=== PATIENT | female | born 1950 | race Caucasian/White ===

== ENCOUNTER 2019-10-28 17:28 | Inpatient (IN) | payer MEDICARE, OTHER ==
[~2019-10-28] VITALS: Ht 152.4 cm; Wt 36.7 kg
--- NOTE | 2019-10-28 17:36 | NUR ---
MK FROM [facility]. PER REPORT, "Depressed/unhappy, dont like Con home, I said I didn't want to live anymore but did not really mean it" "I just said some stupid things, I never meant to hurt myself". to ER bed 11, hooked to monitor, changed to hosp gown, warm blanket provided, patient aao X 4, breathing even and unlabored. Sitter at bedside for safety. Dr Mtz at bedside
[2019-10-28 17:53] LABS: BASOPHILS % (AUTO) 0.5 % (0.0-2.0); EOSINOPHILS % (AUTO) 0.4 % (0.0-6.0); HEMATOCRIT 32 % (33-45); HEMOGLOBIN 10.6 g/dL (11.5-14.8); LYMPHOCYTES # (AUTO) 1.2 /CMM (0.8-4.8); LYMPHOCYTES % (AUTO) 14.6 % (20.0-44.0); MEAN CORPUSCULAR HGB CONC 33 g/dl (31.0-36.0); MEAN CORPUSCULAR VOLUME 97 fL (82-100); MONOCYTES # (AUTO) 0.5 /CMM (0.1-1.30); MONOCYTES % (AUTO) 6.6 % (2.0-12.0); NEUTROPHILS # (AUTO) 6.2 /CMM (1.8-8.9); NEUTROPHILS % (AUTO) 77.9 % (43.0-81.0); PLATELET COUNT (AUTO) 380 /CMM (150-450); RED BLOOD CELL COUNT(AUTO) 3.36 MIL/uL (4.0-5.2)
[2019-10-28 17:59] LABS: CALCIUM, SERUM 9.4 mg/dL (8.5-10.1); CARBON DIOXIDE 25 mmol/L (21-32); CHLORIDE 103 mmol/L (98-107); CREATININE 0.9 mg/dL (0.6-1.3); GLUCOSE 133 mg/dL (74-106); POTASSIUM 3.9 mmol/L (3.5-5.1); SODIUM SERUM 137 mmol/L (136-145); UREA NITROGEN, BLOOD 31 mg/dL (7-18)
[2019-10-28 18:09] LABS: SALICYLATE 0.5 mg/dL (2.8-20.0)
--- NOTE | 2019-10-28 18:09 | NUR ---
URINE SAMPLE COLLECTED VIA STRAIGHT CATHETER, SAMPLE SENT TO LAB
[2019-10-28 18:10] LABS: ALCOHOL, BLOOD < 3 mg/dL (0-0)
[2019-10-28] MEDS ORDERED: CITA10TA9 PO (18:12)
[2019-10-28] MEDS ORDERED: NORT25CA PO (18:12)
[2019-10-28] MEDS ORDERED: SUMA50TA PO (18:12)
[2019-10-28] MEDS ORDERED: ACET-2605 PO (18:12)
[2019-10-28] MEDS ORDERED: MAGN400T26 PO (18:12)
[2019-10-28] MEDS ORDERED: METH1TAB30 PO (18:12)
[2019-10-28] MEDS ORDERED: BENA20TA9 PO (18:12)
[2019-10-28] MEDS ORDERED: VALA500T40 PO (18:12)
[2019-10-28] MEDS ORDERED: MAGN400O6 PO (18:12)
[2019-10-28] MEDS ORDERED: BISA10SU11 RC (18:12)
[2019-10-28] MEDS ORDERED: TRAM50TA2 PO (18:12)
[2019-10-28] MEDS ORDERED: SUCR1TAB PO (18:12)
[2019-10-28] MEDS ORDERED: ACET-868 PO (18:12)
[2019-10-28] MEDS ORDERED: AMLO10TA4 PO (18:12)
[2019-10-28] MEDS ORDERED: CYCL30DR EACHEYE (18:12)
[2019-10-28] MEDS ORDERED: PANT40TA2 PO (18:12)
[2019-10-28] MEDS ORDERED: MULT-24 PO (18:12)
[2019-10-28] MEDS ORDERED: NA P133E RC (18:12)
[2019-10-28] MEDS ORDERED: ALEN70TA6 PO (18:12)
--- NOTE | 2019-10-28 18:28 | NUR ---
NITHIN RN CALLED. ETA 1 HOUR. PRIMARY NURSE AWARE.
[2019-10-28 18:54] LABS: APPEARANCE,URINE Cloudy (CLEAR); BILIRUBIN,URINE Negative (NEGATIVE); BLOOD, URINE Moderate Ery/uL (NEGATIVE); COLOR,URINE Yellow (YELLOW); KETONES,URINE Negative (NEGATIVE); LEUKOCYTE ESTERASE ,URINE Moderate (NEGATIVE); NITRITE, URINE Negative (NEGATIVE); PROTEIN,URINE 100 mg/dl (NEGATIVE); UGLUCOSE Negative (NEGATIVE); UROBILINOGEN,URINE 0.2 EU/dL (0.2)
[2019-10-28 19:05] LABS: THYROID STIMULATING HORMONE 0.924 uIU/mL (0.358-3.74)
--- NOTE | 2019-10-28 19:14 | NUR ---
JADE WELLRE FROM CRISIS TEAM AT BEDSIDE
[2019-10-28 19:20] LABS: BACTERIA,URINE Many /HPF (None Seen); RBC,URINE 21-50 /HPF (0-2); SQUAMOUS EPITHELIAL CELL,UR Moderate /HPF (None Seen); WBC,URINE TOO NUMEROUS TO COUN /HPF (0-3)
--- NOTE | 2019-10-28 19:24 | NUR ---
COVID SAMPLE SWAB COLLECTED AND SENT TO LAB
[2019-10-28] MEDS ORDERED: HYDROCODONE/APAP 7.5/325MG 1 EACH TABLET PO ONE (20:00)
[2019-10-28] MEDS ORDERED: NITROFURANTOIN/NITROFURAN MAC 100 MG CAPSULE PO ONE (20:00)
[2019-10-28] MEDS ORDERED: HYDROCODONE/APAP 5/325MG TABLET ONE (20:04)
[2019-10-28] MEDS ORDERED: NITROFURANTOIN/NITROFURAN MAC 100 MG CAPSULE ONE (20:04)
[2019-10-28] MEDS ORDERED: HYDROCODONE/APAP 5/325MG TABLET PO ONE (20:30)
--- NOTE | 2019-10-28 20:31 | NUR ---
TIMBO (PT'S BEST FRIEND)
[2019-10-28] MEDS ORDERED: ACETAMINOPHEN 325 MG TABLET PO PRN ×3 (22:00→23:30)
[2019-10-28] MEDS ORDERED: ALENDRONATE 70 MG TABLET PO SCH (22:00)
[2019-10-28] MEDS ORDERED: BISACODYL SUPP (10 MG) 10 MG/SUPP.RECT SUPP.RECT RC PRN (22:00)
[2019-10-28] MEDS ORDERED: NA PHOS,M-B/NA PHOS,DI-BA 1 EA ENEMA RC PRN (22:00)
[2019-10-28] MEDS ORDERED: MAGNESIUM HYDROXIDE 30 ML UDC PO PRN ×2 (22:00→23:30)
[2019-10-28] MEDS ORDERED: MISCELLANEOUS MED 1 EA EA PO PRN (22:00)
[2019-10-28 22:30] VITALS: BP 113/50
--- NOTE | 2019-10-28 22:30 | NUR ---
RN OPENING NOTE PT RECEIVED FROM ER. PT ARRIVED ON THE UNIT AT 2220 VIA STRETCHER WITH 1 NURSE ESCORT. PATIENT ADMITTED ON A 5150 HOLD FOR DTO. 5150 HOLD WAS RECEIVED.UPON FACE TO FACE ASSESSMENT PT IS NOTED GROOMED AND COOPERATIVE. PT CURRENTLY IS LYING IN THE BED, AWAKE, ORIENTED X4. PATIENT IS DISPLAYING NO S/S OF APPARENT DISTRESS. PT IS ON ROOM AIR HAVING UNLABORED BREATHING AND SATING 98%.PATIENT DENIES SUICIDE IDEATION AND HOMICIDAL IDEATION AT THIS TIME. PATIENT IS UNDER PSYCHIATRIC CARE OF DR ZIMMER AND THE MEDICAL CARE OF DIOR (ANN MARIE). PT BELONGINGS WERE INVENTORIED AND CHECKED FOR CONTRABAND. SAFETY MEASURES IN PLACE BED AT LOWEST POSITION, LOCKED, SIDE RAILS UP X2, CALL LIGHT IN REACH.I WILL CONTINUE TO MONITOR THIS PATIENT TO MAINTAIN SAFETY. Addendum: 10/29/19 at 0643 by JUAN JOSE FREY RN RN NOTE PT IS DTS NOT DTO.
[2019-10-28] MEDS ORDERED: BLOOD SUGAR DIAGNOSTIC 1 EACH STRIP IN ONE (23:30)
[2019-10-28] MEDS ORDERED: MAG HYDROX/AL HYDROX/SIMETH 30 ML UDC PO PRN (23:30)
[2019-10-29] VITALS: BP 106/59
[2019-10-29] MEDS: TRAMADOL HCL 50 MG TABLET PO PRN ×3 (00:31→18:19)
[2019-10-29] MEDS: TEMAZEPAM 7.5 MG CAPSULE PO PRN ×2 (00:32→21:52)
[2019-10-29] MEDS: SUCRALFATE 1 G TABLET PO SCH ×5 (00:32→21:51)
--- NOTE | 2019-10-29 00:45 | NUR ---
RN NOTE CARAFATE WAS NOT AVAILABLE SO IT WAS NOT ADMINISTERED.
[2019-10-29 04:00] VITALS: BP 118/63
--- NOTE | 2019-10-29 07:15 | NUR ---
RN OPENING NOTE: Received patient in bed. Awake, alert and oriented x4. Isolation precaution to R/O COVID in place. On room air and tolerating well, saturation noted at 95%. No SOB and not in respiratory distress. Currently admitted on a 5150 hold for DTS, patient denies any suicidal ideation and homicidal ideation at this time. Patient for psych consult and still to be seen and evaluated. Pain reported at the back and will continue to manage with prescribed pain medications. Call light in reach, bed locked, low and at semi-tatum's position. Side rails up x3 and padded. Will continue to monitor.
--- NOTE | 2019-10-29 07:23 | NUR ---
RN CLOSING NOTE PT REMAINED STABLE DURING MY SHIFT. REPORT GIVEN TO INCOMING SHIFT FOR SOPHIE.
[2019-10-29 08:00] VITALS: BP 98/63
[2019-10-29] MEDS ORDERED: ACETAMINOPHEN ES 500 MG TABLET PO PRN (08:00)
[2019-10-29] MEDS: ENSURE ENLIVE CHOC 237 ML CAN PO SCH ×2 (08:00→18:14)
[2019-10-29] MEDS: PANTOPRAZOLE 40 MG TABLET.DR PO SCH (08:27)
[2019-10-29] MEDS: SUMATRIPTAN SUCCINATE 25 MG TABLET PO SCH ×2 (08:28→18:14)
[2019-10-29] MEDS: MAGNESIUM OXIDE 400 MG TABLET PO SCH ×2 (08:28→18:12)
[2019-10-29] MEDS: MULTIVITAMINS,THERAGRAN 1 UDTAB TABLET PO SCH (08:28)
[2019-10-29] MEDS: VALACYCLOVIR HCL 500 MG TABLET PO SCH (08:28)
[2019-10-29] MEDS: BENAZEPRIL HCL 20 MG TABLET PO SCH ×2 (09:00→18:14)
[2019-10-29] MEDS: AMLODIPINE BESYLATE 10 MG TABLET PO SCH (09:00)
[2019-10-29] MEDS ORDERED: METHENAMINE MANDELATE 1 GM TABLET PO SCH (09:00)
[2019-10-29 16:00] VITALS: BP 110/61
--- NOTE | 2019-10-29 19:30 | NUR ---
RN CLOSING NOTE: Patient remains in bed. Awake, alert and oriented x4. Isolation precaution to R/O COVID in place. On room air and tolerating well, saturation noted at 95%. No SOB and not in respiratory distress. Currently admitted on a 5150 hold for DTS, patient denies any suicidal ideation and homicidal ideation at this time. Patient for psych consult and still to be seen and evaluated. Pain reported at the back managed with prescribed pain medications. Call light in reach, bed locked, low and at semi-tatum's position. Side rails up x3 and padded. Seen by Dr. Castro on shift. Endorsed to oncoming shift for SOPHIE.
--- NOTE | 2019-10-29 20:00 | NUR ---
JAG RN OPENING NOTES RECEIVED PATIENT IN BED, AWAKE, CONSCIOUS, COOPERATIVE, A/0 X4, HOB ELEVATED, BREATHING AT ROOM AIR, NO SIGNS OF RESPIRATORY DISTRESS, NO COMPLAINTS OF PAIN, PATIENT IS ON 5150 HOLD, WILL END ON 10/31/19, NO IV ACCESS, SIDE RAILS UP.
--- NOTE | 2019-10-29 23:45 | NUR ---
JAG RN CLOSING NOTES ENDORSED PATIENT TO GPS RN ABENA, A/O X 4, BREATHING AT ROOM AIR, UNLABORED BREATHING, NO SIGNS OF RESPIRATORY DISTRESS, NO IV ACCESS, GPS NURSE WILL DO SOPHIE.
[2019-10-29 23:50] VITALS: BP 104/60
--- NOTE | 2019-10-29 23:50 | NUR ---
GPS RN NOTES: ADMISSION ADMITTED 69 Y/O FEMALE FROM [facility] UNIT TO GPS ON A 5150. PER HOLD PT CAME FROM [facility]. SHE WAS BROUGHT IN DUE TO INCREASED DEPRESSION. PT VERBALIZED TO STAFF SHE WAS DEPRESSED AND WANTS TO AND TO KILL HERSELF BY OVERDOSE ON PILLS. PER HOLD PT VERBALIZE SHE DOESN'T WANT TO LIVE ANYMORE. UPON FACE TO FACE ASSESSMENT PT IS UNCOOPERATIVE AT TIMES, FLAT AFFECT, IN DENIAL, DEPRESSED, RESERVE, AND GUARDED. RECEIVED REPORT FROM JAG NURSE ELIE. PT IS BED REST. PT IN LOW BED, X2 SIDE RAILS UP, SEMI RODRÍGUEZ POSITION, AND BED ALARM ON. PT STATES SHE WANTS TO BE ALONE AND REFUSES TO TAKE PICTURE OF HER SKIN DUE TO "NOT IN THE MOOD." NOTED SACRAL REDNESS AND DISCOLORATION ON BOTH ARMS. PICTURE ALREADY TAKEN ON THE October AND PUT INTO THE CHART. ORDERED WOUND CONSULT IN THE MORNING FOR FURTHER ASSESSMENT. ORDERED ZGUARD FOR SACRAL REDNESS. PLAN OF CARE, REPOSITION PT Q2 HOURS. PT JUAN CARLOS SI AND HI AT THIS TIME. ENVIRONMENTAL SAFETY CHECK Q15 MIN. ENCOURAGE TO VERBALIZE THOUGHTS AND FEELINGS TO STAFF. BELONGINGS CHECKED FOR CONTRABAND. NURSING ASSESSMENT DONE. PICTURE IF PT FACE FOR IDENTIFICATION IS PLACE IN CHART. PTS RIGHT DISCUSS BY VENDING ROUTE DRIVER. VITALS TAKEN WITHIN NORMAL LEVELS. PT HAS DENTURES WITH HER. DENTURE CONTAINER AT BEDSIDE IF NEEDED. NO SOB. NO RESP DISTRESS. BREATHING EVEN AND UNLABORED. CALL CAN WITHIN REACH. CONTINUE TO MONITOR
[2019-10-30] MEDS: PANTOPRAZOLE 40 MG TABLET.DR PO SCH (07:30)
[2019-10-30] MEDS: SUCRALFATE 1 G TABLET PO SCH ×4 (07:30→21:08)
[2019-10-30 08:00] VITALS: BP 115/60
[2019-10-30 08:17] LABS: CALCIUM, SERUM 9.2 mg/dL (8.5-10.1); CREATININE 0.8 mg/dL (0.6-1.3); POTASSIUM 3.9 mmol/L (3.5-5.1)
[2019-10-30 08:19] LABS: BASOPHILS # (AUTO) 0.1 /CMM (0.0-0.2); BASOPHILS % (AUTO) 0.8 % (0.0-2.0); EOSINOPHILS % (AUTO) 0.3 % (0.0-6.0); HEMATOCRIT 32 % (33-45); HEMOGLOBIN 10.7 g/dL (11.5-14.8); LYMPHOCYTES # (AUTO) 1.2 /CMM (0.8-4.8); LYMPHOCYTES % (AUTO) 18.7 % (20.0-44.0); MEAN CORPUSCULAR HGB CONC 33 g/dl (31.0-36.0); MEAN CORPUSCULAR VOLUME 96 fL (82-100); MONOCYTES # (AUTO) 0.4 /CMM (0.1-1.30); MONOCYTES % (AUTO) 6.8 % (2.0-12.0); NEUTROPHILS # (AUTO) 4.8 /CMM (1.8-8.9); NEUTROPHILS % (AUTO) 73.4 % (43.0-81.0); PLATELET COUNT (AUTO) 341 /CMM (150-450); RED BLOOD CELL COUNT(AUTO) 3.38 MIL/uL (4.0-5.2); WHITE BLOOD COUNT (AUTO) 6.5 K/uL (4.3-11.0)
[2019-10-30] MEDS: SUMATRIPTAN SUCCINATE 25 MG TABLET PO SCH ×2 (08:35→17:00)
[2019-10-30] MEDS: MAGNESIUM OXIDE 400 MG TABLET PO SCH ×2 (08:35→17:00)
[2019-10-30] MEDS: BENAZEPRIL HCL 20 MG TABLET PO SCH ×2 (08:35→17:00)
[2019-10-30] MEDS: VALACYCLOVIR HCL 500 MG TABLET PO SCH (08:36)
[2019-10-30] MEDS: ENSURE ENLIVE CHOC 237 ML CAN PO SCH ×2 (08:36→17:47)
[2019-10-30] MEDS: AMLODIPINE BESYLATE 10 MG TABLET PO SCH (08:36)
[2019-10-30] MEDS: MULTIVITAMINS,THERAGRAN 1 UDTAB TABLET PO SCH (08:36)
[2019-10-30] MEDS: Z GUARD REMEDY 4 OZ OINT TP SCH (09:00)
--- NOTE | 2019-10-30 09:00 | NUR ---
GPS/RN PT REFUSED MEDS SCHEDULED FOR 0900. OFFERED X3
[2019-10-30] MEDS ORDERED: FIXODENT 1 EA TUBE MM PRN (11:30)
[2019-10-30 16:00] VITALS: BP 118/70
--- NOTE | 2019-10-30 17:48 | NUR ---
GPS/RN PT REFUSED MEDS SCHEDULED FOR 1700. OFFERED X3
[2019-10-30] MEDS: TRAMADOL HCL 50 MG TABLET PO PRN (19:52)
[2019-10-30 20:31] VITALS: BP 107/67
[2019-10-30] MEDS: TEMAZEPAM 7.5 MG CAPSULE PO PRN (21:08)
--- NOTE | 2019-10-30 22:47 | NUR ---
RN NOTE: PATIENT REFUSED SKIN REASSESSMENT AND PICTURE OF THE SKIN TO BE TAKEN.
[2019-10-31] MEDS: SUCRALFATE 1 G TABLET PO SCH ×4 (07:30→21:33)
[2019-10-31] MEDS: PANTOPRAZOLE 40 MG TABLET.DR PO SCH (07:30)
[2019-10-31 08:00] VITALS: BP 124/64
[2019-10-31] MEDS: AMLODIPINE BESYLATE 10 MG TABLET PO SCH (08:29)
[2019-10-31] MEDS: VALACYCLOVIR HCL 500 MG TABLET PO SCH (08:29)
[2019-10-31] MEDS: MULTIVITAMINS,THERAGRAN 1 UDTAB TABLET PO SCH (08:29)
[2019-10-31] MEDS: MAGNESIUM OXIDE 400 MG TABLET PO SCH ×2 (08:30→17:40)
[2019-10-31] MEDS: BENAZEPRIL HCL 20 MG TABLET PO SCH ×2 (08:30→17:00)
[2019-10-31] MEDS: SUMATRIPTAN SUCCINATE 25 MG TABLET PO SCH ×2 (08:31→17:35)
[2019-10-31] MEDS: ENSURE ENLIVE CHOC 237 ML CAN PO SCH ×2 (08:31→17:36)
[2019-10-31] MEDS: Z GUARD REMEDY 4 OZ OINT TP SCH (08:48)
--- NOTE | 2019-10-31 11:27 | NUR ---
Person to Notify Contact: TJ called the pts friend, Carmen ([phone]), and left a voicemail stating that the SW would like to discuss the pts treatment plan at her earliest convenience.
--- NOTE | 2019-10-31 11:34 | NUR ---
WOUND CARE CONSULT: PT PRESENTS WITH SACRAL SCARRING AND LOWER BUTTOCKS RASH, PRESENT ON ADMISSION. RECOMMENDATIONS MADE FOR SKIN PROTECTION. DISCUSSED WITH NURSING STAFF. PT NOTED TO BE EXTREMELY THIN AND BONY. DIETARY CONSULT IN PLACE. WILL SEE PRN. EARL IN AGREEMENT WITH PLAN OF CARE. Addendum: 10/31/19 at 1135 by RAKESH ROE WNDNU Amended: Links added.
--- NOTE | 2019-10-31 11:37 | NUR ---
Facility Contact: SW called [facility] ([phone]) and spoke to Shirin from the Admissions Department who stated that the pt can return to the facility once she is stable for discharge but will be requesting updates at that time.
--- NOTE | 2019-10-31 11:54 | NUR ---
Friend Contact: Pts friend, Carmen ([phone]), called the SW during her lunch break from work to discuss the pts treatment. She stated that the pt does not want to return to the facility that she was residing in and stated that she would want the SW to discharge the pt to an alternative SNF placement. SW states that she will discuss the pts discharge with the MD and determine if there is a facility that is more appropriate for her. SW stated that she will keep her updated.
[2019-10-31] MEDS: TRAMADOL HCL 50 MG TABLET PO PRN (14:19)
--- NOTE | 2019-10-31 14:19 | NUR ---
RN NOTE:PATIENT C/O PAIN 9/10 MEDICATED WITH TRAMADOL 50MG WILL CONTINUE TO MONITOR .
--- NOTE | 2019-10-31 15:13 | NUR ---
Initial Discharge Plan: Pt currently resides [facility] located at [address] [place] [address]; ([phone]). Per pt, she would not like to return to the facility. SW will work with the pt and the MD regarding appropriate discharge planning. SW will form a safe and proper plan.
[2019-10-31 16:00] VITALS: BP 99/59
[2019-10-31] MEDS: CLOTRIMAZOLE 1% 15 GM TUBE TP SCH (17:35)
[2019-10-31 20:29] VITALS: BP 110/68
[2019-10-31] MEDS: MIRTAZAPINE 15 MG TABLET PO SCH (21:33)
--- NOTE | 2019-11-01 06:29 | NUR ---
RN NOTES: PT. RESTING IN HER ROOM , NO ACUTE DISTRESS/ CHANGES NOTED, ALL NEEDS ANTICIPATED, WILL CONTINUITY WITH CARE.
[2019-11-01] MEDS: PANTOPRAZOLE 40 MG TABLET.DR PO SCH ×2 (07:30→09:43)
[2019-11-01] MEDS: SUCRALFATE 1 G TABLET PO SCH ×5 (07:30→21:13)
[2019-11-01 08:00] VITALS: BP 103/56
[2019-11-01] MEDS: ENSURE ENLIVE CHOC 237 ML CAN PO SCH ×2 (08:47→17:08)
--- NOTE | 2019-11-01 08:47 | NUR ---
Friend Contact: SW called the pts friend, Carmen ([phone]), and left a voicemail in response to the voicemail that was left for the SW. TJ stated that there is a psychologist who works in the hospital but has not been present since COVID started. SW stated that she will attempt to find out if the psychologist offers remote sessions which will allow the pt to receive some psychotherapy. TJ also stated that the pt has the ability to participate in groups and that the SW will provide individual therapy from time to time. SW stated that she will keep the pts friend updated.
[2019-11-01] MEDS: MULTIVITAMINS,THERAGRAN 1 UDTAB TABLET PO SCH ×2 (09:00→09:43)
[2019-11-01] MEDS: SUMATRIPTAN SUCCINATE 25 MG TABLET PO SCH ×2 (09:00→09:43)
[2019-11-01] MEDS: BENAZEPRIL HCL 20 MG TABLET PO SCH ×2 (09:00→16:51)
[2019-11-01] MEDS: AMLODIPINE BESYLATE 10 MG TABLET PO SCH (09:00)
[2019-11-01] MEDS: VALACYCLOVIR HCL 500 MG TABLET PO SCH ×2 (09:00→09:42)
[2019-11-01] MEDS: MAGNESIUM OXIDE 400 MG TABLET PO SCH ×3 (09:00→16:57)
[2019-11-01] MEDS: CLOTRIMAZOLE 1% 15 GM TUBE TP SCH ×2 (09:48→16:57)
[2019-11-01] MEDS: Z GUARD REMEDY 4 OZ OINT TP SCH (09:48)
--- NOTE | 2019-11-01 10:00 | NUR ---
refused all am meds.informed by pharm. that pt. is e-coli esbl in urine.[facility] pharmacist states he will notify dr. cox.
[2019-11-01] MEDS: TRAMADOL HCL 50 MG TABLET PO PRN ×2 (10:03→17:00)
--- NOTE | 2019-11-01 10:03 | NUR ---
given ultram po for back pain.
--- NOTE | 2019-11-01 11:19 | NUR ---
Individual Intervention with Pt: SW met with the pt and attempted to discuss the pts depression and social isolation. Pt stated that she is currently feeling depressed being in this environment and stated that she wanted to be discharged to an alternative facility as soon as possible. SW stated that if she was feeling depressed and did not like it at this facility because she felt alone that she can change that by participating in groups in the activities room. Pt stated that she can barely walk and "is a loner." SW asked her if she realized that being a "loner" is going hand in hand with the cause of her depression and she stated, "I know but I just do not care right now." SW stated that if she starts to feel better then she can attend groups and that the SW will attempt to consistently provide therapy to the best of her ability.
--- NOTE | 2019-11-01 15:00 | NUR ---
relocated to . 217-1 for isolation e-coli-esbl of urine.
[2019-11-01 16:00] VITALS: BP 106/55
[2019-11-01] MEDS ORDERED: SUMATRIPTAN SUCCINATE 25 MG TABLET PO PRN (16:00)
--- NOTE | 2019-11-01 17:08 | NUR ---
call out to dr. cox regarding need for tx on esbl in urine-states he will take care of it.
--- NOTE | 2019-11-01 18:50 | NUR ---
refused all meds today except for pain pills.
[2019-11-01 20:06] VITALS: BP 106/59
[2019-11-01] MEDS: MIRTAZAPINE 15 MG TABLET PO SCH (21:14)
[2019-11-01] MEDS: SULFAMETH/TRIMETH 800/160 MG 1 UDTAB TABLET PO SCH (22:47)
[2019-11-02 08:00] VITALS: BP 110/57
[2019-11-02] MEDS: BENAZEPRIL HCL 20 MG TABLET PO SCH ×2 (09:00→17:00)
[2019-11-02] MEDS: AMLODIPINE BESYLATE 10 MG TABLET PO SCH (09:00)
[2019-11-02] MEDS: VALACYCLOVIR HCL 500 MG TABLET PO SCH (09:45)
[2019-11-02] MEDS: SULFAMETH/TRIMETH 800/160 MG 1 UDTAB TABLET PO SCH ×2 (09:46→20:11)
[2019-11-02] MEDS: SUCRALFATE 1 G TABLET PO SCH ×4 (09:46→21:06)
[2019-11-02] MEDS: TEMAZEPAM 7.5 MG CAPSULE PO PRN ×2 (09:46→21:41)
[2019-11-02] MEDS: PANTOPRAZOLE 40 MG TABLET.DR PO SCH (09:46)
[2019-11-02] MEDS: MULTIVITAMINS,THERAGRAN 1 UDTAB TABLET PO SCH (09:46)
[2019-11-02] MEDS: ENSURE ENLIVE CHOC 237 ML CAN PO SCH ×2 (09:48→17:39)
[2019-11-02] MEDS: CLOTRIMAZOLE 1% 15 GM TUBE TP SCH ×2 (09:52→18:04)
[2019-11-02] MEDS: Z GUARD REMEDY 4 OZ OINT TP SCH (09:52)
[2019-11-02] MEDS: MAGNESIUM OXIDE 400 MG TABLET PO SCH ×2 (09:56→17:00)
[2019-11-02] MEDS: TRAMADOL HCL 50 MG TABLET PO PRN (10:22)
[2019-11-02 16:00] VITALS: BP 106/50
--- NOTE | 2019-11-02 16:02 | NUR ---
Friend Contact: TJ called the pts friend, Carmen ([phone]), and left her a voicemail stating that the pts discharge date is not set at this time and that she is meeting with the MD every day.
--- NOTE | 2019-11-02 16:26 | NUR ---
Individual Intervention with Pt: SW met with the pt and stated that she will provide her with an individual session but the pt stated that she did not want to talk to the SW and that she just wanted to be discharged somewhere else already.
[2019-11-02 19:53] VITALS: BP 101/51
[2019-11-02] MEDS: LORAZEPAM 1 MG TABLET PO PRN (20:11)
--- NOTE | 2019-11-02 20:17 | NUR ---
GPS RN NOTE: ANXIETY PT WAS COMPLAINING OF HAVING ANXIETY AND ASKING IF I WAS ABLE TO GIVE HER SOMETHING FOR THE ANXIETY. FIRST TRIED THERAPEUTIC MEASURES, DEEP BREATHING EXERCISES/RELAXATION TECHNIQUES AND THE PT STATED "CAN I HAVE AN ATIVAN". ADMINISTERED 1MG ATIVAN PRN @ 2010. WILL REASSESS AND CONTINUE TO MONITOR Q15MIN FOR SAFETY AND BEHAVIOR.
[2019-11-02] MEDS: MIRTAZAPINE 15 MG TABLET PO SCH (21:07)
--- NOTE | 2019-11-02 21:50 | NUR ---
GPS RN NOTE: INSOMNIA PT STATED "CAN I TAKE MY SLEEPING PILL RIGHT NOW, I HAVE PROBLEMS SLEEPING". PTS VITALS SIGN STABLE, ADMINISTERED RESTORIL PRN @2141, WILL REASSESS AND CONTINUE TO MONITOR Q15MIN FOR SAFETY AND BEHAVIOR.
[2019-11-03] MEDS: PANTOPRAZOLE 40 MG TABLET.DR PO SCH (07:59)
[2019-11-03 08:00] VITALS: BP 95/54
[2019-11-03] MEDS: SUCRALFATE 1 G TABLET PO SCH ×4 (08:00→21:16)
[2019-11-03] MEDS: ENSURE ENLIVE CHOC 237 ML CAN PO SCH ×2 (08:01→16:33)
[2019-11-03] MEDS: BENAZEPRIL HCL 20 MG TABLET PO SCH ×2 (09:00→16:28)
[2019-11-03] MEDS: AMLODIPINE BESYLATE 10 MG TABLET PO SCH (09:00)
[2019-11-03] MEDS: MAGNESIUM OXIDE 400 MG TABLET PO SCH ×2 (09:03→16:28)
[2019-11-03] MEDS: VALACYCLOVIR HCL 500 MG TABLET PO SCH (09:03)
[2019-11-03] MEDS: SULFAMETH/TRIMETH 800/160 MG 1 UDTAB TABLET PO SCH ×2 (09:03→20:11)
[2019-11-03] MEDS: MULTIVITAMINS,THERAGRAN 1 UDTAB TABLET PO SCH (09:03)
[2019-11-03] MEDS: Z GUARD REMEDY 4 OZ OINT TP SCH (09:04)
[2019-11-03] MEDS: CLOTRIMAZOLE 1% 15 GM TUBE TP SCH ×2 (09:05→16:34)
[2019-11-03] MEDS: LORAZEPAM 1 MG TABLET PO PRN ×2 (10:32→20:11)
--- NOTE | 2019-11-03 10:33 | NUR ---
GPS/RN-NOTES PATIENT STATED " I NEED ATIVAN FOR MY ANXIETY". ATIVAN 1MG P.O GIVEN PRN ORDER. WILL CONT. MONITORING FOR SAFETY AND BEHAVIOR.
--- NOTE | 2019-11-03 11:35 | NUR ---
GPS/RN-NOTES PATIENT SLEEPING IN BED CALM INTERMITTENTLY SLEEPING. NO ACUTE DISTRESS NOTED.
--- NOTE | 2019-11-03 12:13 | NUR ---
Friend Contact: SW called the pts friend, Carmen ([phone]), and stated that the MD does not have a discharge date for this pt at this time but that the SW will call her and inform her when that time comes. SW stated that she has attempted to encourage the pt to engage in her environment as well as with the SW but that the pt has refused to participate.
[2019-11-03 16:00] VITALS: BP 96/53
[2019-11-03 20:08] VITALS: BP 107/53
--- NOTE | 2019-11-03 20:26 | NUR ---
GPS RN NOTE: ANXIETY PT WAS COMPLAINING OF FEELING ANXIOUS AND REQUESTED ATIVAN, WAS NOTIFIED BY AM SHIFT PTS BLOOD PRESSURE HAS BEEN RUNNING LOW, CHECKED TWICE AND PTS VITAL SIGNS WERE STABLE, BP:107/53, RR: 19, HR: 101, O2: 95% RA. ADMINISTERED PRN ATIVAN @ 2010, WILL CONTINUE TO MONITOR Q15 MIN FOR SAFETY AND BEHAVIOR AND REASSESS.
[2019-11-03] MEDS: MIRTAZAPINE 15 MG TABLET PO SCH (21:16)
[2019-11-03] MEDS: TEMAZEPAM 7.5 MG CAPSULE PO PRN (21:47)
--- NOTE | 2019-11-03 21:59 | NUR ---
GPS RN NOTE: INSOMNIA PT REQUESTED HER SLEEPING PILL COMPLAINED OF INSOMNIA, BP: 115/56, HR: 95, RR: 18, O2: 99 RA. ADMINISTERED RESTORIL PRN @ 0997, WILL REASSESS AND CONTINUE TO MONITOR Q15 MIN FOR SAFETY AND BEHAVIOR.
[2019-11-04] MEDS ORDERED: ALENDRONATE 70 MG TABLET PO SCH (07:30)
[2019-11-04 08:00] VITALS: BP 111/55
[2019-11-04] MEDS: VALACYCLOVIR HCL 500 MG TABLET PO SCH (08:45)
[2019-11-04] MEDS: SULFAMETH/TRIMETH 800/160 MG 1 UDTAB TABLET PO SCH ×2 (08:45→20:04)
[2019-11-04] MEDS: PANTOPRAZOLE 40 MG TABLET.DR PO SCH (08:45)
[2019-11-04] MEDS: MAGNESIUM OXIDE 400 MG TABLET PO SCH ×2 (08:45→17:04)
[2019-11-04] MEDS: SUCRALFATE 1 G TABLET PO SCH ×4 (08:45→21:00)
[2019-11-04] MEDS: MULTIVITAMINS,THERAGRAN 1 UDTAB TABLET PO SCH (08:45)
[2019-11-04] MEDS: ENSURE ENLIVE CHOC 237 ML CAN PO SCH ×2 (08:46→17:04)
[2019-11-04] MEDS: AMLODIPINE BESYLATE 10 MG TABLET PO SCH (08:46)
[2019-11-04] MEDS: BENAZEPRIL HCL 20 MG TABLET PO SCH ×2 (08:46→17:00)
[2019-11-04] MEDS: Z GUARD REMEDY 4 OZ OINT TP SCH (08:47)
[2019-11-04] MEDS: CLOTRIMAZOLE 1% 15 GM TUBE TP SCH ×2 (08:47→17:05)
[2019-11-04] MEDS: LORAZEPAM 1 MG TABLET PO PRN ×2 (12:43→19:46)
--- NOTE | 2019-11-04 12:43 | NUR ---
GPS/RN-NOTES PATIENT STATED " I NEED ATIVAN ". ATIVAN 1MG P.O GIVEN PRN ORDER. WILL CONT. MONITORING FOR SAFETY AND BEHAVIOR.
--- NOTE | 2019-11-04 13:08 | NUR ---
SNF Referral: TJ faxed a referral to [facility] with attention to Mary to the fax number: [phone].
--- NOTE | 2019-11-04 13:40 | NUR ---
GPS/RN-NOTES PATIENT SLEEPING IN BED EASILY AROUSE ,NO ACUTE DISTRESS NOTED.
[2019-11-04 16:14] VITALS: BP 99/59
--- NOTE | 2019-11-04 20:06 | NUR ---
GPS RN NOTE: ANXIETY PT COMPLAINED OF FEELING ANXIOUS STATED "AM I ABLE TO TAKE MY ATIVAN NOW IM FEELING ANXIOUS AND UNEASY". VITALS SIGNS: BP: 115/61, HR: 92, RR: 18, O2: 97% RA. ADMINISTERED ATIVAN PRN @ 1946, WILL REASSESS AND CONTINUE TO MONITOR Q15 MIN FOR SAFETY AND BEHAVIOR.
[2019-11-04 20:13] VITALS: BP 115/61
[2019-11-04] MEDS: MIRTAZAPINE 15 MG TABLET PO SCH (21:00)
[2019-11-04] MEDS: TEMAZEPAM 7.5 MG CAPSULE PO PRN (21:36)
--- NOTE | 2019-11-04 21:38 | NUR ---
GPS RN NOTE: 8INSOMNIA PT COMPLAINED OF HAVING DIFFICULTY SLEEPING, ASKED FOR HER SLEEPING PILL, VITALS: BP: 113/65, HR:89, ADMINISTERED RESTORIL 7.5MG PRN, WILL REASSESS AND CONTINUE TO MONITOR Q15MIN FOR SAFETY AND BEHAVIOR.
[2019-11-05 08:00] VITALS: BP 120/58
[2019-11-05] MEDS: PANTOPRAZOLE 40 MG TABLET.DR PO SCH (08:09)
[2019-11-05] MEDS: SUCRALFATE 1 G TABLET PO SCH ×4 (08:10→21:33)
[2019-11-05] MEDS: ENSURE ENLIVE CHOC 237 ML CAN PO SCH ×2 (08:10→16:23)
[2019-11-05] MEDS: SULFAMETH/TRIMETH 800/160 MG 1 UDTAB TABLET PO SCH ×2 (08:26→21:33)
[2019-11-05] MEDS: MULTIVITAMINS,THERAGRAN 1 UDTAB TABLET PO SCH (08:26)
[2019-11-05] MEDS: VALACYCLOVIR HCL 500 MG TABLET PO SCH (08:26)
[2019-11-05] MEDS: MAGNESIUM OXIDE 400 MG TABLET PO SCH ×2 (08:26→16:22)
[2019-11-05] MEDS: AMLODIPINE BESYLATE 10 MG TABLET PO SCH (08:27)
[2019-11-05] MEDS: BENAZEPRIL HCL 20 MG TABLET PO SCH ×2 (08:27→16:22)
[2019-11-05] MEDS: LORAZEPAM 1 MG TABLET PO PRN ×2 (08:30→16:22)
--- NOTE | 2019-11-05 08:33 | NUR ---
RN NOTE: ANXIETY PT C/O INCREASING ANXIETY. REQUESTING ATIVAN PRN. ATIVAN 1MG PO PRN ADMINISTERED. BP MEDICATIONS HELD DUE TO DECREASED BP. PT IS ASYMPTOMATIC AT PRESENT TIME.
[2019-11-05] MEDS: CLOTRIMAZOLE 1% 15 GM TUBE TP SCH ×2 (09:23→17:43)
[2019-11-05] MEDS: Z GUARD REMEDY 4 OZ OINT TP SCH (09:24)
--- NOTE | 2019-11-05 11:40 | NUR ---
RN NOTE: CONSTIPATION. PT C/O CONSTIPATION THIS AM AFTER HAVING A BM WNL THIS AM. MEDICATED WITH MOM PO PRN AND PRUNE JUICE. PT HAS H/O 2 BOWEL OBSTRUCTIONS AND 2 BOWEL RESECTIONS. WILL CONT TO MONITOR OUTPUT
--- NOTE | 2019-11-05 13:20 | NUR ---
RN NOTE: CONSTIPATION PT C/O CONT'D CONSTIPATION. MEDICATED WITH BISACODYL SUPPOSITORY PRN.
[2019-11-05 16:00] VITALS: BP 97/53
--- NOTE | 2019-11-05 16:19 | NUR ---
RN NOTE: ANXIETY AND CONSTIPATION PT C/O INCREASED ANXIETY AND AGITATION. MEDICATED WITH ATIVAN PO PRN. PT HAD THREE FORMED STOOLS THIS AFTERNOON. PRION TO SUPPOSITORY ABDOMEN WAS EXTENDED AND FIRM. CURRENTLY ABDOMEN IS SOFT, NON-DISTENDED AND PT DENIES PAIN WITH PALPITATION
[2019-11-05 20:12] VITALS: BP 103/65
[2019-11-05] MEDS: MIRTAZAPINE 15 MG TABLET PO SCH (21:33)
--- NOTE | 2019-11-06 07:04 | NUR ---
GPS RN CLOSING NOTE: PT LAYING ON BED. PT DIAPER CHANGED AND Z-GUARD APPLIED TO SACRAL AREA. ALL PT NEEDS MET. NO S/S OF ANY DISTRESS, RESPIRATION EVEN AND UNLABORED WITH EQUAL RISE AND FALL OF THE CHEST. WILL CONTINUE TO MONITOR AND ENDORSE TO AM SHIFT.
[2019-11-06 08:00] VITALS: BP 117/69
[2019-11-06] MEDS: PANTOPRAZOLE 40 MG TABLET.DR PO SCH (08:15)
[2019-11-06] MEDS: SUCRALFATE 1 G TABLET PO SCH ×4 (08:15→21:28)
[2019-11-06] MEDS: ENSURE ENLIVE CHOC 237 ML CAN PO SCH ×2 (08:16→16:03)
[2019-11-06] MEDS: BENAZEPRIL HCL 20 MG TABLET PO SCH ×2 (09:00→16:09)
[2019-11-06] MEDS: AMLODIPINE BESYLATE 10 MG TABLET PO SCH (09:00)
[2019-11-06] MEDS: MULTIVITAMINS,THERAGRAN 1 UDTAB TABLET PO SCH (09:10)
[2019-11-06] MEDS: VALACYCLOVIR HCL 500 MG TABLET PO SCH (09:10)
[2019-11-06] MEDS: LORAZEPAM 1 MG TABLET PO PRN ×2 (09:11→16:10)
[2019-11-06] MEDS: SULFAMETH/TRIMETH 800/160 MG 1 UDTAB TABLET PO SCH ×2 (09:11→21:28)
[2019-11-06] MEDS: MAGNESIUM OXIDE 400 MG TABLET PO SCH ×2 (09:11→16:10)
--- NOTE | 2019-11-06 09:13 | NUR ---
RN NOTE: ANXIETY PT C/O INCREASING ANXIETY AND AGITATION. CALLING OUT EVERY 2 MINUTES. REQUESTING ATIVAN PRN. ATIVAN PO PRN ADMINISTERED.
[2019-11-06] MEDS: CLOTRIMAZOLE 1% 15 GM TUBE TP SCH ×2 (09:38→18:03)
[2019-11-06] MEDS: Z GUARD REMEDY 4 OZ OINT TP SCH (09:39)
[2019-11-06 16:00] VITALS: BP 106/57
--- NOTE | 2019-11-06 16:11 | NUR ---
RN NOTE: ANXIETY PT C/O INCREASING ANXIETY. REQUESTING ATIVAN PRN. ATIVAN PRN PO ADMINISTERED
[2019-11-06 20:03] VITALS: BP 107/71
[2019-11-06] MEDS: MIRTAZAPINE 15 MG TABLET PO SCH (21:28)
[2019-11-07 08:00] VITALS: BP 104/57
[2019-11-07] MEDS: MULTIVITAMINS,THERAGRAN 1 UDTAB TABLET PO SCH (08:23)
[2019-11-07] MEDS: MAGNESIUM OXIDE 400 MG TABLET PO SCH ×2 (08:23→16:53)
[2019-11-07] MEDS: PANTOPRAZOLE 40 MG TABLET.DR PO SCH (08:23)
[2019-11-07] MEDS: VALACYCLOVIR HCL 500 MG TABLET PO SCH (08:24)
[2019-11-07] MEDS: SUCRALFATE 1 G TABLET PO SCH ×4 (08:24→21:38)
[2019-11-07] MEDS: SULFAMETH/TRIMETH 800/160 MG 1 UDTAB TABLET PO SCH ×2 (08:24→21:38)
[2019-11-07] MEDS: ENSURE ENLIVE CHOC 237 ML CAN PO SCH ×2 (08:24→16:54)
[2019-11-07] MEDS: BENAZEPRIL HCL 20 MG TABLET PO SCH ×2 (08:25→16:53)
[2019-11-07] MEDS: AMLODIPINE BESYLATE 10 MG TABLET PO SCH (08:25)
[2019-11-07] MEDS: Z GUARD REMEDY 4 OZ OINT TP SCH (08:26)
[2019-11-07] MEDS: CLOTRIMAZOLE 1% 15 GM TUBE TP SCH ×2 (08:26→16:54)
--- NOTE | 2019-11-07 08:32 | NUR ---
Decrease bp 104/57, will hold bp meds.
[2019-11-07] MEDS: LORAZEPAM 1 MG TABLET PO PRN ×2 (09:57→16:53)
--- NOTE | 2019-11-07 10:19 | NUR ---
Social Work Family Contact: This life insurance underwriter contacted patient's friend Carmen ([phone]) and left a voicemail that patient is accepted at [facility] and will dc when stable.
--- NOTE | 2019-11-07 14:31 | NUR ---
SNF Referral: SW followed up with [facility] with attention to Mary to the fax number: [phone] and stated that patient is accepted.
[2019-11-07 16:00] VITALS: BP 108/59
[2019-11-07 19:53] VITALS: BP 109/58
[2019-11-07] MEDS: MIRTAZAPINE 15 MG TABLET PO SCH (20:22)
--- NOTE | 2019-11-08 07:08 | NUR ---
GPS RN OPENING NOTES RECEIVED PT RESTING IN HER BED. AOX3-4 DEPRESSED,ISOLATIVE, GUARDED FLAT AFFECT,PARANOID , GUARDED,SUSPICIOUS, NO S/S OF ANY ACUTE DISTRESS NOTED.FOCUS ON MEDICATIONS.NEEDS FREQUENTLY REDIRECTIONS. ALL NEEDS ATTENDED ANTICIPATED , ENCOURAGED PT. TO VERBALIZED ANY FEELING OR CONCERNED. DENIES SI/HI.PT COMPLIANT TO MEDS/CARE.SAFETY PRECAUTION IN PLACE AND MAINTAINED AT ALL TIMES. BED IN LOWEST LOCKED POSITION, HOB ELEVATED, RAILS UP X 2, CALL LIGHT WITHIN REACH. WILL CONTINUE TO MONITOR FOR SAFETY BEHAVIOR Q15 AND PER PROTOCOL
[2019-11-08 08:00] VITALS: BP 109/69
[2019-11-08] MEDS: PANTOPRAZOLE 40 MG TABLET.DR PO SCH (08:05)
[2019-11-08] MEDS: SUCRALFATE 1 G TABLET PO SCH ×4 (08:05→21:03)
[2019-11-08] MEDS: ENSURE ENLIVE CHOC 237 ML CAN PO SCH ×2 (08:06→17:35)
[2019-11-08] MEDS: VALACYCLOVIR HCL 500 MG TABLET PO SCH (08:56)
[2019-11-08] MEDS: MAGNESIUM OXIDE 400 MG TABLET PO SCH ×2 (08:57→17:34)
[2019-11-08] MEDS: MULTIVITAMINS,THERAGRAN 1 UDTAB TABLET PO SCH (08:57)
[2019-11-08] MEDS: LORAZEPAM 1 MG TABLET PO PRN ×2 (08:57→20:19)
[2019-11-08] MEDS: SULFAMETH/TRIMETH 800/160 MG 1 UDTAB TABLET PO SCH (08:57)
[2019-11-08] MEDS: AMLODIPINE BESYLATE 10 MG TABLET PO SCH (08:57)
--- NOTE | 2019-11-08 08:57 | NUR ---
PT C/O OF ANXIETY, VS WNL. ATIVAN 1MG PO Q6HRS PRN ADMINISTERED FOR ANXIETY PER ORDER. WILL CONTINUE TO MONITOR
[2019-11-08] MEDS: BENAZEPRIL HCL 20 MG TABLET PO SCH ×2 (08:58→17:00)
[2019-11-08 09:00] VITALS: BP 109/69
--- NOTE | 2019-11-08 09:07 | NUR ---
Social Work Family Contact: This proposal manager writer contacted patient's friend Carmen ([phone]) and left a voicemail that patient is accepted at [facility] and will dc when stable.
[2019-11-08] MEDS: CLOTRIMAZOLE 1% 15 GM TUBE TP SCH ×2 (09:32→17:34)
[2019-11-08] MEDS: Z GUARD REMEDY 4 OZ OINT TP SCH (10:13)
[2019-11-08 16:00] VITALS: BP 79/43
[2019-11-08 17:00] VITALS: BP 100/52
--- NOTE | 2019-11-08 17:00 | NUR ---
PT'S BP 100/52 HR 95, RR 20, T 98.0, SPO2 98. BENAZEPRIL HCL 20GM PO BID HELD AT THIS TIME. WILL CONTINUE TO MONITOR AND ENDORSE TO HEAD ORTHOPEDIC TEAM PHYSICIAN NURSE FOR SOPHIE
--- NOTE | 2019-11-08 17:00 | NUR ---
@1615, PT NOTED WITH DECREASE BP 79/43 HR 91, RR 20, T 97.8, SPO2 96. PT ASSESSMENT DONE, PT AWAKE, ALERT, ORIENTED AND STATED "I AM FEELING OK". PT DENIES SOB, CHEST PAIN, SO S/S OF ANY ACUTE DISTRESS, NO CHANGE IN LOC. PT PO HYDRATION STATUS ENCOURAGED, LEGS RAISED ABOVE HEART LEVEL. TELEPHONE EXCHANGE WITH REQUEST FOR DR MATHIS TO UPDATE REGARDING PT'S STATUS. AWAITING CALL BACK. NO NEW ORDERS AT THIS TIME. REASSESSED VS @ 1700, VS WITH BP 100/52 HR 95, RR 20, T 98.0, SPO2 98. PT REMAINS ASYMPTOMATIC. WILL CONTINUE TO MONITOR
--- NOTE | 2019-11-08 18:37 | NUR ---
GPS RN CLOSING NOTES PT AWAKE IN BED AT THIS TIME. PT REMAINED STABLE THROUGHOUT SHIFT. PT KEPT CLEAN AND DRY. ALL CARE, NEEDS, MEDICATION AND TREATMENT ADMINISTERED ANTICIPATED PER ORDER. PT REPOSITIONED Q2HR, PRN AND PER PROTOCOL. SAFETY PRECAUTION IN PLACE AND MAINTAINED AT ALL TIMES. BED IN LOWEST LOCKED POSITION, HOB ELEVATED, RAILS UP, CALL LIGHT WITHIN REACH. WILL ENDORSE TO MOTHER TESTER NURSE FOR SOPHIE
--- NOTE | 2019-11-08 20:28 | NUR ---
GPS RN NOTE: ANXIETY PT STATED "DEANGELO CAN I GET MY ATIVAN IM NOT FEELING GOOD IM REALLY ANXIOUS", VITAL SIGNS STABLE, BP: 128/62, HR:96, O2: 94, RR: 18. ADMINISTERED 1MG ATIVAN PRN @ 2019. WILL REASSESS AND CONTINUE TO MONITOR Q15 MIN FOR SAFETY AND BEHAVIOR.
[2019-11-08 20:54] VITALS: BP 128/62
[2019-11-08] MEDS: MIRTAZAPINE 15 MG TABLET PO SCH (21:04)
[2019-11-08] MEDS: TEMAZEPAM 7.5 MG CAPSULE PO PRN (21:51)
--- NOTE | 2019-11-08 21:55 | NUR ---
GPS RN NOTE: INSOMNIA PT COMPLAINED OF HAVING TROUBLE SLEEPING AND REQUESTED HER SLEEPING PILL. VITALS- B/P: 113/58, HR: 90, RR: 18, O2: 99% RA. ADMINISTERED PRN RESTORIL @2151, WILL REASSESS AND CONTINUE TO MONITOR Q15 MIN FOR SAFETY AND BEHAVIOR.
[2019-11-09] MEDS: SUCRALFATE 1 G TABLET PO SCH ×4 (07:57→21:19)
[2019-11-09] MEDS: PANTOPRAZOLE 40 MG TABLET.DR PO SCH (07:57)
[2019-11-09] MEDS: ENSURE ENLIVE CHOC 237 ML CAN PO SCH ×2 (07:57→17:28)
[2019-11-09 08:00] VITALS: BP 111/58
[2019-11-09] MEDS: MULTIVITAMINS,THERAGRAN 1 UDTAB TABLET PO SCH (08:39)
[2019-11-09] MEDS: VALACYCLOVIR HCL 500 MG TABLET PO SCH (08:39)
[2019-11-09] MEDS: BENAZEPRIL HCL 20 MG TABLET PO SCH ×2 (08:43→17:00)
[2019-11-09] MEDS: MAGNESIUM OXIDE 400 MG TABLET PO SCH ×2 (08:44→17:26)
[2019-11-09] MEDS: AMLODIPINE BESYLATE 10 MG TABLET PO SCH (08:45)
--- NOTE | 2019-11-09 08:45 | NUR ---
RN NOTES PATIENT REFUSED SOME MORNING MEDICATIONS DESPITE OF EXPLANATION OF RISKS AND BENEFITS, VERBALIZED UNDERSTANDING.
[2019-11-09] MEDS: CLOTRIMAZOLE 1% 15 GM TUBE TP SCH ×2 (08:46→17:29)
[2019-11-09] MEDS: Z GUARD REMEDY 4 OZ OINT TP SCH (08:46)
--- NOTE | 2019-11-09 09:04 | NUR ---
Social Work Family Contact: This staff writer contacted patient's friend Carmen ([phone]) and was unavailable. This staff writer left a detailed voicemail.
[2019-11-09] MEDS: LORAZEPAM 1 MG TABLET PO PRN ×2 (09:19→18:31)
--- NOTE | 2019-11-09 09:19 | NUR ---
RN NOTES PATIENT ANXIOUS, ASKED FOR ATIVAN, VITAL SIGNS WITHIN NORMAL LIMITS, ATIVAN GIVEN ORDERED.
--- NOTE | 2019-11-09 09:27 | NUR ---
TJ Individual Therapy: SW met with the pt and stated that she will provide her with an individual session. This service writer encouraged pt to participate in group and to interact with peers. Pt shared that she does not want to join and that she prefers to stay in her room even though pt stated that she becomes "bored". This service writer continuously encouraged participation.
--- NOTE | 2019-11-09 09:38 | NUR ---
Social Work Note: This film writer spoke with ZHANE Velazquez who stated that friend Carmen ([phone]) stated that she is the DPOA but have not received documents.
--- NOTE | 2019-11-09 11:44 | NUR ---
RN NOTES PATIENT REFUSED CARAFATE MEDICATION DESPITE OF EXPLANATION OF RISKS AND BENEFITS, VERBALIZED UNDERSTANDING.
--- NOTE | 2019-11-09 12:12 | NUR ---
Social Work Family Contact: This conventional mortgage underwriter contacted patient's friend Carmen ([phone]) and discussed patient's discharge plan. Per Carmen, she is aware and agreeable.
[2019-11-09 16:00] VITALS: BP 101/59
--- NOTE | 2019-11-09 18:13 | NUR ---
RN NOTES RECEIVED NEW ORDER FROM DR MATHIS FOR COVID 19 ANTIGEN TEST, ORDER CLARIFIED AND READ BACK WITH MD, NOTED AND CARRIED OUT.
--- NOTE | 2019-11-09 18:31 | NUR ---
RN NOTES PATIENT ANXIOUS, ASKED FOR ATIVAN, VITAL SIGNS WITHIN NORMAL LIMITS, ATIVAN GIVEN ORDERED.
[2019-11-09 20:33] VITALS: BP 115/67
[2019-11-09] MEDS: MIRTAZAPINE 15 MG TABLET PO SCH (21:19)
[2019-11-10 07:52] VITALS: BP 99/59
[2019-11-10 08:00] VITALS: BP 99/59
--- NOTE | 2019-11-10 08:10 | NUR ---
Social Work Discharge Note: Patient will be discharged to snf facility to [facility] [address] [place] [address]; ([phone]) via Ambulance transportation at 12PM. Patients friend Carmen ([phone]) is aware and agreeable with discharge plan. Oil And Gas Exploration Technician spoke with Mary fisher, at [facility] ([phone]) who stated patient will be accepted at facility today. Patient is alert and oriented x2-3, and is not able to plan for self-care at this time, but is willing to accept care provided for her at the facility. Patient denies any suicidal or homicidal ideation. Patient is aware and agreeable with discharge plans. Patient will continue to follow-up with her (psychiatrist) Dr. Cuba and (senior cyber intelligence analyst) Dr. Licea at the facility. Patient presents with euthymic mood and congruent affect.
[2019-11-10] MEDS: SUCRALFATE 1 G TABLET PO SCH ×2 (08:36→12:29)
[2019-11-10] MEDS: MAGNESIUM OXIDE 400 MG TABLET PO SCH (08:36)
[2019-11-10] MEDS: ENSURE ENLIVE CHOC 237 ML CAN PO SCH (08:36)
[2019-11-10] MEDS: MULTIVITAMINS,THERAGRAN 1 UDTAB TABLET PO SCH (08:36)
[2019-11-10] MEDS: VALACYCLOVIR HCL 500 MG TABLET PO SCH (08:36)
[2019-11-10] MEDS: PANTOPRAZOLE 40 MG TABLET.DR PO SCH (08:36)
[2019-11-10] MEDS: BENAZEPRIL HCL 20 MG TABLET PO SCH (08:36)
[2019-11-10 08:37] VITALS: BP 99/59
[2019-11-10] MEDS: CLOTRIMAZOLE 1% 15 GM TUBE TP SCH (08:37)
[2019-11-10] MEDS: AMLODIPINE BESYLATE 10 MG TABLET PO SCH (08:37)
[2019-11-10] MEDS: Z GUARD REMEDY 4 OZ OINT TP SCH (08:37)
[2019-11-10] MEDS: LORAZEPAM 1 MG TABLET PO PRN (08:40)
--- NOTE | 2019-11-10 08:40 | NUR ---
GPS RN Note: Anxiety patient c/o anxiety and requested Ativan. 1mg administered as ordered. Will continue to monitor
--- NOTE | 2019-11-10 14:06 | NUR ---
GPS RN NOTE: Discharge Patient is a 69 year old female discharged to [facility] in stable condition. Patient stated, "I am happy to see my new place" and presented with pleasant affect and mood. Cooperative and compliant. Denies SI/HI and VAH. Educated to return to the hospital or call 911 if she begins feeling suicidal again. Medications reviewed and prescriptions given. Psychiatric treatment goals met and medical treatment goals ongoing. Skin is intact, photos of discoloration in chart. Exit care given and patient verbalized understanding. Belongings returned. Picked up by ambulance at 1400.
== END 2019-11-10 14:00 | DRG 885 ==
LOC: ER 17:28 → GPS 20:39 → GPSOV1 22:10 → GPS 10-29 23:31
PROVIDERS: ADMIT Psychiatry & Neurology Psychiatry; ATTEND Internal Medicine
DX: F33.2 Major depressive disorder, recurrent severe without psychotic features (principal); N39.0 Urinary tract infection, site not specified; R45.851 Suicidal ideations; M81.0 Age-related osteoporosis without current pathological fracture; K21.9 Gastro-esophageal reflux disease without esophagitis; I10 Essential (primary) hypertension; G62.9 Polyneuropathy, unspecified; F41.9 Anxiety disorder, unspecified; Z79.83 Long term (current) use of bisphosphonates; Z91.81 History of falling
CPT/HCPCS: 36415; 80048-TC; 80061-TC; 80305; 81000-TC; 82962-TC; 84443-TC; 85025-TC; 87081-TC; 87086-TC; 87186-TC; 97110-TC; 97112-TC; 97116-TC; 97530-TC; G0480; U0003-CS